=== PATIENT | male | born 1995 | race Caucasian/White ===

== ENCOUNTER 2025-06-24 12:05 | Emergency (ER) | payer OTHER ==
[~2025-06-24] VITALS: Ht 177.8 cm; Wt 68.2 kg
[2025-06-24 12:18] VITALS: BP 126/81; PULSE 72; TEMP 97.5; O2SAT 98
[2025-06-24] MEDS: fluorescein sod 1mg ophthalmic strip LEFTEYE ONE (13:00)
[2025-06-24] MEDS: proparacaine 0.5% ophthalmic drops 15ml EACHEYE ONE (13:29)
--- NOTE | 2025-06-24 13:56 | Physician Documentation ---
History of Present Illness ~ Chief Complaint: Eye Pain Stated Complaint: CAT SCRATCH TO EYE Time Seen by MD: 12:54 HPI 30-year-old male presents to the ED with a complaint of a cat scratch on the medial aspect of his left eye. Denies any changes in vision. reports minor alfa n. Day of Onset: Jun 24, 2025 Medication Reconciliation Allergies: Coded Allergies: kiwi (Verified Allergy, Unknown, 06/24/25) phenytoin (Verified Allergy, Unknown, 06/24/25) Uncoded Allergies: DEPAKOTE (Allergy, Unknown, 06/24/25) Scheduled Ciprofloxacin Hcl Ophth* (Ciloxan 0.35 Ophth Drops*), 1 DROP LEFTEYE Q6H Review of Systems All Other Systems at this time: Reviewed and Negative ROS As stated above in the HPI, otherwise all systems are reviewed and negative. Physical Exam Vital Signs: Temperature: 97.5, Source: Temporal, Heart Rate: 72, Respiratory Rate: 16, BP: 126/81, Pulse Oximetry: 98, Weight: 68.180 Oxygen Flow Rate: 0 Physical Exam General: Alert, no apparent distress. HEENT: PERRL, EOMI, no injection, moist mucous membranes. leftt eye medial corneal abrasion Neurologic: Oriented x4. Psychiatric: Normal mood and affect. Skin: Normal color, warm and dry. No edema, no ecchymosis. Progress Results/Orders Results/Orders Completed Orders - DELFIN ACEVEDO GUEST ROOM INSPECTOR Proparacaine Ophth Solution (Alcaine Oph (06/24/25 13:00) Fluorescein 1mg Ophthal Strip (Ful-Tonya O (06/24/25 13:00) Ciprofloxacin Ophth Drops (Ciloxan 0.3% (06/24/25 13:50) Vital Signs 06/24/25 12:18 Temp 97.5 Pulse 72 Resp 16 B/P (MAP) 126/81 Pulse Ox 98 O2 Flow Rate 0 Medical Decision Making Findings This patient presents with a suspected corneal abrasion secondary to his cat scratch in the medial aspect of his left eye. We do not have fluorescein available at this time due to his a shortage nationwide. Not currently suspect any imbedded or remaining clot in the eye. Patient reports only minor pain. We will place him on ciprofloxacin ophthalmic and have him follow up in the outpatient setting Departure Disposition: 01 HOME / SELF CARE / HOMELESS Impression: Primary Impression: Corneal abrasion Discharge Instructions: Corneal Abrasion Referrals: NO PRIMARY CARE PROVIDER (PCP) Prescriptions Ciprofloxacin Hcl Ophth* (Ciloxan 0.35 Ophth Drops*) 2.5 Ml Bottle 1 DROP LEFTEYE Q6H for 7 Days, #5 ML Prov: DELFIN ACEVEDO GUEST ROOM INSPECTOR 06/24/25 Education Educated: Patient Educated regarding: diagnosis Signature Scribe Signature: h Attestation: Scribed for Delfin Acevedo Direct Care Professional by Delfin Stevens NP . 06/24/25 13:59 DELFIN ACEVEDO NP Jun 24, 2025 13:56
[2025-06-24] MEDS ORDERED: CIPR2.5D21 LEFTEYE (13:57)
[2025-06-24 14:17] VITALS: RESP 16
[2025-06-24] MEDS: ciprofloxacin 0.3% 2.5ml ophthalmic solution LEFTEYE ONE (14:23)
== END 2025-06-24 14:24 | disposition home or self-care (01) ==
LOC: ER 12:06
DX: S05.02XA Injury of conjunctiva and corneal abrasion without foreign body, left eye, initial encounter (principal); W55.03XA Scratched by cat, initial encounter; Y93.89 Activity, other specified; Y92.89 Other specified places as the place of occurrence of the external cause; Y99.8 Other external cause status
CPT/HCPCS: 99283; 99284